=== PATIENT | male | born 1995 | race Caucasian/White ===

== ENCOUNTER 2016-10-15 20:59 | Emergency (ER) | payer MEDICAID ==
--- NOTE | 2016-10-15 21:19 | ER Document Report ---
ED Medical Screen (RME) - General Stated Complaint: KNEE PAIN Time seen by provider: 21:17 Mode of Arrival: Ambulatory Information source: Patient Notes: 20-year-old male twisted his left knee when getting up off the floor 2:30 pm today. Pain persists, not swollen. He used ice and ibuprofen. TRAVEL OUTSIDE OF THE [place] IN LAST 30 DAYS: No - Related Data Allergies/Adverse Reactions: No Known Allergies Allergy (Verified 08/22/14 15:59) Past Medical History Pulmonary Medical History: Reports: Hx Bronchitis Musculoskeltal Medical History: Reports Hx Musculoskeletal Trauma - left arm and finger Psychiatric Medical History: Reports: Hx Attention Deficit Hyperactivity Disorder Traumatic Medical History: Reports: Hx Fractures Past Surgical History: Reports: Hx Abdominal Surgery - inguinal hernia, Hx Inguinal Hernia - repair at 6 months - Immunizations Immunizations up to date: Yes Hx Diphtheria, Pertussis, Tetanus Vaccination: Yes - 2009
[2016-10-16] MEDS ORDERED: TRAMADOL HCL 50 MG TABLET PO ONE (00:04)
--- NOTE | 2016-10-16 00:04 | ER Document Report ---
ED General - General Chief Complaint: Knee Injury Stated Complaint: KNEE PAIN Mode of Arrival: Ambulatory TRAVEL OUTSIDE OF THE [place] IN LAST 30 DAYS: No - HPI Patient complains to provider of: left knee injury Notes: Patient complaining of left knee pain after he twisted his knee today. Patient states most pain is along his kneecap. Patient has been ambulating around the ER after his x-ray waiting for evaluation. Otherwise denies any other injuries. - Related Data Allergies/Adverse Reactions: No Known Allergies Allergy (Verified 08/22/14 15:59) Past Medical History - General Information source: Patient - Social History Smoking Status: Current Every Day Smoker Frequency of alcohol use: Occasional Drug Abuse: None Family History: CAD, DM, Hyperlipidemia, Hypertension. denies: Arthritis, COPD , CVA, Malignancy, Thyroid Disfunction Patient has suicidal ideation: No Patient has homicidal ideation: No Pulmonary Medical History: Reports: Hx Bronchitis Renal/ Medical History: Denies: Hx Peritoneal Dialysis Musculoskeltal Medical History: Reports Hx Musculoskeletal Trauma - left arm and finger Psychiatric Medical History: Reports: Hx Attention Deficit Hyperactivity Disorder Traumatic Medical History: Reports: Hx Fractures Past Surgical History: Reports: Hx Abdominal Surgery - inguinal hernia, Hx Inguinal Hernia - repair at 6 months - Immunizations Immunizations up to date: Yes Hx Diphtheria, Pertussis, Tetanus Vaccination: Yes - 2009 Review of Systems - Review of Systems Constitutional: No symptoms reported EENT: No symptoms reported Cardiovascular: No symptoms reported Respiratory: No symptoms reported Gastrointestinal: No symptoms reported Genitourinary: No symptoms reported Male Genitourinary: No symptoms reported Musculoskeletal: Muscle pain Skin: No symptoms reported Hematologic/Lymphatic: No symptoms reported Neurological/Psychological: No symptoms reported -: Yes All other systems reviewed and negative Physical Exam - Vital signs Vitals: Temp Pulse Resp BP Pulse Ox 98.4 F 106 H 18 149/82 H 97 10/15/16 21:06 10/15/16 21:06 10/15/16 21:06 10/15/16 21:06 10/15/16 21:06 Interpretation: Normal - General General appearance: Appears well, Alert - HEENT Head: Normocephalic, Atraumatic Eyes: Normal Pupils: PERRL - Respiratory Respiratory status: No respiratory distress Chest status: Nontender Breath sounds: Normal Chest palpation: Normal - Cardiovascular Rhythm: Regular Heart sounds: Normal auscultation Murmur: No - Abdominal Inspection: Normal Distension: No distension Bowel sounds: Normal Tenderness: Nontender Organomegaly: No organomegaly - Back Back: Normal, Nontender - Extremities General upper extremity: Normal inspection, Nontender, Normal color, Normal ROM , Normal temperature General lower extremity: Normal inspection, Tender - Tenderness to palpation of the left patella tendon insertion of the patella tendon. There is no laxity or tenderness upon posterior anterior valve or varus stressing of the leg. No loss deformity right leg unaffected, Normal color, Normal ROM, Normal temperature, Normal weight bearing. No: Shayy's sign - Neurological Neuro grossly intact: Yes Cognition: Normal Orientation: AAOx4 [place] Coma Scale Eye Opening: Spontaneous [place] Coma Scale Verbal: Oriented [place] Coma Scale Motor: Obeys Commands [place] Coma Scale Total: 15 Speech: Normal Motor strength normal: LUE, RUE, LLE, RLE Sensory: Normal - Psychological Associated symptoms: Normal affect, Normal mood - Skin Skin Temperature: Warm Skin Moisture: Dry Skin Color: Normal Course - Re-evaluation Re-evalutation: 10/16/16 00:01 Patient with possibly strain. Encouraged patient is continuing to take Tylenol Motrin ice and elevate his knee. Patient is also encouraged to use Kd wraps at home to give his knee for support. Will give the patient 10 will transfer home. Will give the patient a dose of Ultram here. Patient will be discharged - Vital Signs Vital signs: Temp Pulse Resp BP Pulse Ox 98.4 F 106 H 18 149/82 H 97 10/15/16 21:18 10/15/16 21:18 10/15/16 21:18 10/15/16 21:18 10/15/16 21:18 Discharge - Discharge Clinical Impression: Knee sprain Qualifiers: Encounter type: initial encounter Involved ligament of knee: unspecified ligament Laterality: left Qualified Code(s): S83.92XA - Sprain of unspecified site of left knee, initial encounter Condition: Good Disposition: HOME, SELF-CARE Instructions: Oral Narcotic Medication ([facility]), Sprained Knee ([facility]), Ice & Elevation ([facility]) Additional Instructions: Follow-up with your primary memory care program director. I will recommend wrapping her knee while ambulate with a Kd bandage. Continue to take Tylenol Motrin for pain control. Ice your knee you may also apply heat or warm towel. Your examination is consistent with a knee sprain. Pain will continue for the next 3-5 days Prescriptions: Tramadol HCl [Ultram 50 mg Tablet] 50 mg PO ASDIR PRN #12 tablet PRN Reason: Referrals: ALLYN CUNNINGHAM FNP-C [Primary Care Provider] - Follow up in 3-5 days
[2016-10-16 00:54] VITALS: BP 130/75
== END 2016-10-16 00:56 | disposition home or self-care (01) ==
LOC: ER 20:59
DX: S83.92XA Sprain of unspecified site of left knee, initial encounter (principal); F17.210 Nicotine dependence, cigarettes, uncomplicated; X58.XXXA Exposure to other specified factors, initial encounter
CPT/HCPCS: 99283

== ENCOUNTER 2016-10-17 22:56 | Emergency (ER) | payer MEDICAID ==
[2016-10-18] MEDS ORDERED: HYDROCODONE/ACETAMINOPHEN 5-325 MG 6 TAB/DSPK PO PRN (03:20)
--- NOTE | 2016-10-18 03:20 | ER Document Report ---
[id number],VOMITING Notes: Patient is a 20 -year-old male who presents with complaint of a sore throat. He was seen in urgent care 2 days ago and started on amoxicillin. He says that his throat continues to hurt feels like it swollen. He did not receive steroids Decadron at the urgent care. He says today when he coughed a little bit of blood in his sputum therefore became concerned ER. He also mentions that he was seen here several days ago because of pain in his left knee. When he stood up and walked he felt his knee twist and felt a pop. He says knee continues to hurt. No new injuries. He had x-ray at that time which was negative. TRAVEL OUTSIDE OF THE [place] IN LAST 30 DAYS: No - Related Data Allergies/Adverse Reactions: codeine Allergy (Verified 10/17/16 23:24) tramadol [From Ultram] Allergy (Verified 10/17/16 23:24) Past Medical History - Social History Smoking Status: Never Smoker Cigarette use (# per day): No Chew tobacco use (# tins/day): No Frequency of alcohol use: None Drug Abuse: None Family History: CAD, DM, Hyperlipidemia, Hypertension. denies: Arthritis, COPD , CVA, Malignancy, Thyroid Disfunction Patient has suicidal ideation: No Patient has homicidal ideation: No Pulmonary Medical History: Reports: Hx Bronchitis Renal/ Medical History: Denies: Hx Peritoneal Dialysis Musculoskeltal Medical History: Reports Hx Musculoskeletal Trauma - left arm and finger Psychiatric Medical History: Reports: Hx Attention Deficit Hyperactivity Disorder Traumatic Medical History: Reports: Hx Fractures Past Surgical History: Reports: Hx Abdominal Surgery - inguinal hernia, Hx Inguinal Hernia - repair at 6 months - Immunizations Immunizations up to date: Yes Hx Diphtheria, Pertussis, Tetanus Vaccination: Yes - 2009 Review of Systems - Review of Systems Notes: My Normal Review Basic REVIEW OF SYSTEMS: CONSTITUTIONAL : Denies fever, chills, or sweats. Denies recent illness. EENT: Sore throat CARDIOVASCULAR: Denies chest pain. RESPIRATORY: Cough GASTROINTESTINAL: Denies abdominal pain. Denies nausea, vomiting, or diarrhea. Denies constipation. Last BM: GENITOURINARY: Denies difficulty urinating, painful urination, burning, frequency, or blood in urine. MUSCULOSKELETAL: Denies neck or back pain or joint pain or swelling. SKIN: Denies rash or skin lesions. NEUROLOGICAL: Denies altered mental status or loss of consciousness. Denies headache. Denies weakness or paralysis or loss of use of either side. Denies problems with gait or speech. Denies sensory or motor loss. ALL OTHER SYSTEMS REVIEWED AND NEGATIVE. Physical Exam - Vital signs Vitals: Temp Pulse Resp BP Pulse Ox 98.0 F 90 18 126/76 H 99 10/18/16 03:49 10/18/16 03:49 10/18/16 03:49 10/18/16 03:49 10/18/16 03:49 - Notes Notes: General Appearance: Well nourished, alert, cooperative, no acute distress, moderate obvious discomfort. Vitals: reviewed, See vital signs table. Head: no swelling or tenderness to the head Eyes: PERRL, EOMI, Conjuctiva clear Mouth: No decreasd moisture Throat: Enlarged tonsils bilaterally. Some erythema. No exudates. Neck: Supple, no neck tenderness, No thyromegaly Lungs: No wheezing, No rales, No rhonci, No accessory muscle use, good air exchange bilaterally. Heart: Normal rate, Regular rythm, No murmur, no rub Abdomen: Normal BS, soft, No rigidity, No abdominal tenderness, No guarding, no rebound, no abdominal masses, no organomegaly Extremities: strength 5/5 in all extremities, good pulses in all extremities, pain with rotation of the left knee. Some pain to palpation in both medial and lateral aspect. No stiff and swelling. Patient is able to fully extend his knee against gravity without any difficulty. No edema. Skin: warm, dry, appropriate color, no rash Neuro: speech clear, oriented x 3, normal affect, responds appropriately to questions. Course - Vital Signs Vital signs: Temp Pulse Resp BP Pulse Ox 98.0 F 90 18 126/76 H 99 10/18/16 03:49 10/18/16 03:49 10/18/16 03:49 10/18/16 03:49 10/18/16 03:49 - Transfer of Care Notes: 10/18/16 05:52 Patient given a shot of Decadron to help with his sore throat and tonsil enlargement. He has no evidence of peritonsillar abscess on exam. His no fevers and otherwise looks well. We'll give him some cough medicine. I will give him crutches for his knee. I encourage him to wear knee brace. Encourage in follow closely with his doctor for reevaluation. If he continues to have problems with his knee or pain with dyspnea after one week and is to follow-up with orthopedic surgeon. I encouraged him to avoid weightbearing activities on the knee until he is pain-free. I encourage him to avoid any sporting type activities. Encourage return to ER immediately if he has any swelling in his throat, difficulty breathing, difficulty swallowing. Patient agrees with plan and will be discharged home. Dictation of this chart was performed using voice recognition software; therefore, there may be some unintended grammatical errors. Discharge - Discharge Clinical Impression: Pharyngitis Qualifiers: Pharyngitis/tonsillitis etiology: unspecified etiology Qualified Code(s): J02.9 - Acute pharyngitis, unspecified Knee pain, left Qualifiers: Chronicity: acute Qualified Code(s): M25.562 - Pain in left knee Condition: Good Disposition: HOME, SELF-CARE Instructions: Oral Narcotic Medication ([facility]) Additional Instructions: Please return to the ER immediately if you have difficulty breathing, fevers, vomiting, or feel like your symptoms are worsening. Please follow-up with the orthopedic surgeon, Dr. Garcia, in one week if you continue to have knee pain. Do not do any exertional activity or running or any thing that will apply significant pressure to your knee until has completely healed or you are cleared by physician. Prescriptions: Benzonatate [Tessalon Perle 100 mg Capsule] 100 mg PO Q8HP PRN #14 cap PRN Reason: Hydrocodone/Acetaminophen [[place] 5-325 mg Tablet] 1 tab PO Q4 PRN #12 tablet PRN Reason: For Breakthrough Pain Referrals: ALLYN CUNNINGHAM, [employer] [Primary Care Provider] - Follow up in 3-5 days YOGI GARCIA MD [ACTIVE STAFF] - Follow up in 3-5 days
[2016-10-18] MEDS ORDERED: DEXAMETHASONE SOD PHOS INJ 10 MG/1 ML VIAL IM ONE (03:21)
[2016-10-18 03:53] VITALS: BP 126/76
== END 2016-10-18 03:53 | disposition home or self-care (01) ==
LOC: ER 22:56
DX: J02.9 Acute pharyngitis, unspecified (principal); M25.562 Pain in left knee; R11.10 Vomiting, unspecified; Z88.6 Allergy status to analgesic agent
CPT/HCPCS: 99283; 96372; 87070; 87880; J1100

== ENCOUNTER 2017-02-02 14:15 | Emergency (ER) | payer OTHER, MEDICAID ==
--- NOTE | 2017-02-02 15:09 | ER Document Report ---
ED General - General Chief Complaint: Laceration Stated Complaint: LACERATION TO RIGHT PINKEY FINGER Time Seen by Provider: 02/02/17 15:07 Mode of Arrival: Ambulatory Information source: Patient Notes: Patient is a 21-year-old male who presents to laceration to the dorsal surface of his fifth digit on his right hand. He states he was using a metal pole at work and he turned his hand cutting his finger on the metal tool around 11:30 this morning. He is unsure of his last tetanus immunization. He went to urgent care who referred him to be evaluated the emergency department due to concern for tendon or ligament damage. Patient has full range of motion in flexion and extension of this digit. Bleeding is controlled at this time. He is right- handed. TRAVEL OUTSIDE OF THE [place] IN LAST 30 DAYS: No - Related Data Allergies/Adverse Reactions: codeine Allergy (Verified 02/02/17 14:18) tramadol [From Ultram] Allergy (Verified 02/02/17 14:18) Past Medical History - General Information source: Patient - Social History Smoking Status: Current Every Day Smoker Family History: CAD, DM, Hyperlipidemia, Hypertension. denies: Arthritis, COPD , CVA, Malignancy, Thyroid Disfunction Patient has suicidal ideation: No Patient has homicidal ideation: No Pulmonary Medical History: Reports: Hx Bronchitis Renal/ Medical History: Denies: Hx Peritoneal Dialysis Musculoskeltal Medical History: Reports Hx Musculoskeletal Trauma - left arm and finger Psychiatric Medical History: Reports: Hx Attention Deficit Hyperactivity Disorder Traumatic Medical History: Reports: Hx Fractures Past Surgical History: Reports: Hx Abdominal Surgery - inguinal hernia, Hx Inguinal Hernia - repair at 6 months - Immunizations Immunizations up to date: Yes Hx Diphtheria, Pertussis, Tetanus Vaccination: Yes - 2009 Review of Systems - Review of Systems Constitutional: See HPI EENT: No symptoms reported Cardiovascular: No symptoms reported Respiratory: No symptoms reported Gastrointestinal: No symptoms reported Genitourinary: No symptoms reported Male Genitourinary: No symptoms reported Musculoskeletal: See HPI Skin: See HPI Hematologic/Lymphatic: No symptoms reported Neurological/Psychological: No symptoms reported Physical Exam - Vital signs Vitals: Temp Pulse BP Pulse Ox 99.1 F 105 H 155/94 H 98 02/02/17 14:19 02/02/17 14:19 02/02/17 14:19 02/02/17 14:19 Interpretation: Hypertensive, Tachycardic - Notes Notes: PHYSICAL EXAM: CONSTITUTIONAL: Alert and oriented, well-appearing and in no acute distress. HENT: Normocephalic, atraumatic. Trachea midline. Uvula midline. Moist mucous membranes. EYES: Pupils equal round and reactive to light, EOM intact. Sclera anicteric, conjunctiva are normal. No entrapment. NECK: supple without lymphadenopathy. No midline tenderness or paraspinous muscle spasms. No step-offs or deformities. ROM intact. HEART: Regular rate and rhythm without murmurs. LUNGS: CTAB and equal. No wheezes, rales or rhonchi. BACK: nontender, no paraspinous spasm, 5+/5 strengths, DTRs 2+, SLR -. EXTREMITIES: Normal range of motion, no pitting edema. No cyanosis. Cap Refill < 3 seconds. NEURO: Cranial nerves grossly intact. Normal sensory/motor exams. PSYCH: Normal mood, normal affect. SKIN: Warm and dry. Normal turgor. No rashes or lesions noted. 1.5 cm laceration to dorsal surface of fifth digit between the PIP and DIP joint. Patient has full range of motion of flexion and extension of this finger. Bleeding is controlled Course - Re-evaluation Re-evalutation: 02/02/17 17:03 Patient seen and examined. 1.5 cm laceration to dorsal surface of fifth digit between the PIP and DIP joint. Patient has full range of motion of flexion and extension of this finger. At this time, low suspicion for tendon/ligament involvement. Bleeding is controlled. Tetanus booster given. Laceration repaired - see procedure note. Discussed local wound care and advised to return in 7 days for suture remove. Given return precautions concerning infection. At this time, will discharge with return precautions and follow-up recommendations. Verbal discharge instructions given at the bedside and opportunity for questions given. Medication warnings reviewed. Patient is in agreement with this plan and has verbalized understanding of return precautions and the need for primary care follow-up in the next 24-72 hours. - Vital Signs Vital signs: Temp Pulse Resp BP Pulse Ox 99.1 F 105 H 155/94 H 98 02/02/17 14:19 02/02/17 14:19 02/02/17 14:19 02/02/17 14:19 Procedures - Laceration/Wound Repair Right Dorsal Finger 5th digit Wound length (cm): 1.5 Wound's Depth, Shape: Superficial, Flap Laceration pre-procedure: Sterile drapes applied, Shur-Clens applied Anesthetic type: 1% Lidocaine Volume Anesthetic (mLs): 2 Wound explored: Clean, No foreign body removed Irrigated w/ Saline (mLs): 20 Wound Debrided: Minimal Wound Repaired With: Sutures Suture Size/Type: 4:0, Nylon Number of Sutures: 2 Post-procedure wound care: Sterile dressing applied Post-procedure NV exam normal: Yes Complications: No Discharge - Discharge Clinical Impression: Laceration of finger of right hand Qualifiers: Encounter type: initial encounter Qualified Code(s): S61.219A - Laceration without foreign body of unspecified finger without damage to nail, initial encounter Condition: Stable Disposition: HOME, SELF-CARE Additional Instructions: LACERATION CARE: Your laceration has been sutured to keep the skin edges aligned during healing. The time of suture removal depends on the nature and location of your cut. Please follow the care instructions the doctor has outlined for you and return for further care, according to the schedule you've been given. Keep the wound and dressing clean. Unless you were told otherwise, you may shower daily, blotting the wound dry with a clean, unused towel. At other times, If the dressing gets wet or blood soaked, remove it and blot the wound dry, then reapply a new dressing. Unless you were instructed otherwise, dressings should be changed at least daily. If any signs of infection occur (swelling, redness, drainage, increasing tenderness, red streaks, tender lumps in the armpit or groin above the laceration, or fever), see the doctor immediately. SOAP CLEANSING: Gently wash the wound daily using a mild soap (like Ivory, Phisoderm, Neutrogena). Use warm water, rubbing gently until all debris, ooze, and crusting have been washed from the wound. Allow to dry briefly (about 10 minutes) after cleaning. Repeat this cleansing at least three times a day for the first two days and then once or twice a day. ANTIBIOTIC OINTMENT PROTECTION: Your wounds are such that dressing them is not practical or optional. After cleansing, you should apply a thin coating of antibiotic ointment ( Bacitracin, not Neosporin) to the wounds at least three times daily. This lessens infection risk, and may decrease the amount of scarring. Use a q-tip or dull butter knife, not your finger, to apply this ointment. Any debris or ooze which builds up in the ointment should be gently rubbed off with a sterile gauze pad. Harder crusting may need to be gently scrubbed off with a clean wash cloth with soap and warm water, perhaps applying a warm, wet wash cloth to the wound for ten minutes first. Development of redness, severe itching, or blistering may mean allergy to the ointment. See the doctor. TETANUS IMMUNIZATION GIVEN: You have been given an immunization against tetanus. Please record this in your records. In general, a booster is needed only once every 10 years. The tetanus shot protects against tetanus or "lockjaw," which is a complication of certain wound infections (the tetanus shot cannot protect against the actual infection). The immunization site may become warm and red due to local reaction. If this occurs, apply warm compresses and take aspirin or ibuprofen to reduce inflammation and discomfort. Return for evaluation if the reaction becomes severe. PROPHYLACTIC ANTIBIOTIC: The antibiotics which have been prescribed are designed to decrease the risk of infection. Only certain types of wounds benefit from this -- the typical cut, scrape, or burn DOES NOT require antibiotics. Of course, infection can still occur despite the use of prophylactic antibiotics. Your wound will heal with less chance of an infectious complication if you take the medication as directed. The most important dose is the FIRST dose, so don't delay filling the prescription! FOLLOW-UP CARE: Please return in __2___ days for an infection check and dressing change. Your sutures should be removed in __7__ days. To facilitate a timely removal of your sutures, you may return to the Emergency Department at [facility]. You do not need to call for an appointment, but the best time to come in for suture removal is early in the morning. If you have been referred to another physician for follow-up care, call that physicians office for an appointment as you were instructed. If you experience a significant change in your laceration, or if you are concerned there may be an infection (swelling, redness, drainage, increasing tenderness, red streaks, tender lumps in the armpit or groin above the laceration, or fever) , return to the Emergency Department immediately re-evaluation. Prescriptions: Cephalexin Monohydrate [Keflex 500 mg Capsule] 500 mg PO Q6H 5 Days Forms: Return to Work
[2017-02-02] MEDS ORDERED: LIDOCAINE 1% INJ-PF (10 MG/ML) 30 ML SDV INJ ONE (15:30)
[2017-02-02] MEDS ORDERED: DIPH/PERTUSS(ACELL)/TETANUS VAC/PF 0.5 ML SYR (>=10YO) IM ONE (15:30)
[2017-02-02] MEDS ORDERED: LIDOCAINE 1% INJ (10 MG/ML) 10 ML MDV INJ ONE (16:30)
[2017-02-02 17:20] VITALS: BP 168/86
== END 2017-02-02 17:15 | disposition home or self-care (01) ==
LOC: ER 14:15
PROC: 0HQFXZZ Repair Right Hand Skin, External Approach (ICD-10-PCS; principal; 2017-02-02)
DX: S61.219A Laceration without foreign body of unspecified finger without damage to nail, initial encounter (principal); W22.8XXA Striking against or struck by other objects, initial encounter; Y99.0 Civilian activity done for income or pay; F17.200 Nicotine dependence, unspecified, uncomplicated; Z88.6 Allergy status to analgesic agent; Z23 Encounter for immunization
CPT/HCPCS: 99282; 90715; 12001; J3490

== ENCOUNTER 2017-02-25 20:54 | Emergency (ER) | payer MEDICAID, OTHER | END 2017-02-25 22:08 | disposition left against medical advice (07) | LOC: ER 20:54 | DX: Z53.21 Procedure and treatment not carried out due to patient leaving prior to being seen by health care provider (principal) ==

== ENCOUNTER 2017-02-26 09:37 | Emergency (ER) | payer MEDICAID, OTHER ==
[2017-02-26 09:51] VITALS: BP 143/69
[2017-02-26] MEDS ORDERED: PENICILLIN G BENZATHINE 1.2 MILLION UNIT/2 ML DISP.SYRIN IM ONE (10:11)
--- NOTE | 2017-02-26 10:25 | ER Document Report ---
HPI - HPI Patient complains to provider of: sore throat Pain Level: 5 Context: Patient is a 21-year-old male presents emergency department complaining of a sore throat since Monday. Patient denies any fever, chills. Admits to difficulty swallowing but denies any shortness of breath, muffled speech, drooling, without drainage, chest pain, neck pain. History of strep throat. States that he needs his tonsils out but has not followed with ENT - DERM Skin Color: Normal Past Medical History - Social History Smoking Status: Unknown if Ever Smoked Family History: CAD, DM, Hyperlipidemia, Hypertension. denies: Arthritis, COPD , CVA, Malignancy, Thyroid Disfunction Patient has suicidal ideation: No Patient has homicidal ideation: No Pulmonary Medical History: Reports: Hx Bronchitis Renal/ Medical History: Denies: Hx Peritoneal Dialysis Musculoskeltal Medical History: Reports Hx Musculoskeletal Trauma - left arm and finger Psychiatric Medical History: Reports: Hx Attention Deficit Hyperactivity Disorder Traumatic Medical History: Reports: Hx Fractures Past Surgical History: Reports: Hx Abdominal Surgery - inguinal hernia, Hx Inguinal Hernia - repair at 6 months - Immunizations Immunizations up to date: Yes Hx Diphtheria, Pertussis, Tetanus Vaccination: Yes - 2009 [employer] Provider Document - CONSTITUTIONAL Agree With Documented VS: Yes Exam Limitations: No Limitations - INFECTION CONTROL TRAVEL OUTSIDE OF THE [place] IN LAST 30 DAYS: No - HEENT HEENT: Atraumatic, Normocephalic, Pharyngeal Exudate, Pharyngeal Erythema. negative: Tympanic Membrane Red, Tympanic Membrane Bulging Notes: Uvula midline. Airway patent. No evidence of tonsillar enlargement, peritonsillar abscess, retropharyngeal abscess. - NECK Neck: Normal Inspection, Other - no evidence of ludwigs angina. negative: Lymphadenopathy-Left, Lymphadenopathy-Right - RESPIRATORY Respiratory: Breath Sounds Normal, No Respiratory Distress, Chest Non-Tender O2 Sat by Pulse Oximetry: 97 - CARDIOVASCULAR Cardiovascular: Regular Rate, Regular Rhythm, No Murmur - NEURO Level of Consciousness: Awake, Alert, Appropriate Motor/Sensory: No Motor Deficit, No Sensory Deficit - DERM Integumentary: Warm, Dry, No Rash Course - Re-evaluation Re-evalutation: 02/26/17 11:10 The 21-year-old male is hemodynamic stable, no acute distress and afebrile. No evidence of [employer] or retropharyngeal abscess. Patient tested negative for strep however patient presents with clinical symptoms of strep throat. Patient received IM dose of penicillin. Patient received strict return precautions that she expressed understanding and agrees with plan. Patient stable for discharge home - Vital Signs Vital signs: Temp Pulse Resp BP Pulse Ox 98.1 F 89 20 143/69 H 97 02/26/17 09:42 02/26/17 09:42 02/26/17 09:42 02/26/17 09:42 02/26/17 09:42 Discharge - Discharge Clinical Impression: Strep pharyngitis Condition: Good Disposition: HOME, SELF-CARE Instructions: Penicillin V K ([facility]), Strep Throat ([facility]) Forms: Elevated Blood Pressure, Return to Work Referrals: ALLYN CUNNINGHAM, [facility] [Primary Care Provider] - Follow up as needed
== END 2017-02-26 10:32 | disposition home or self-care (01) ==
LOC: ER 09:37
DX: J02.0 Streptococcal pharyngitis (principal)
CPT/HCPCS: 99283; 96372; 87070; 87880; 87077; J0561

== ENCOUNTER 2017-04-14 22:40 | Emergency (ER) | payer MEDICAID ==
[2017-04-14 23:51] VITALS: BP 132/70
[2017-04-15] MEDS ORDERED: CLINDAMYCIN HCL 150 MG CAPSULE PO ONE (02:22)
--- NOTE | 2017-04-15 02:25 | ER Document Report ---
ED General - General Chief Complaint: Skin Sore(s) Stated Complaint: BELLY BUTTON PAIN Time Seen by Provider: 04/15/17 02:02 Information source: Patient TRAVEL OUTSIDE OF THE [place] IN LAST 30 DAYS: No - HPI Onset: Other - several months Onset/Duration: Gradual Quality of pain: Achy, Throbbing Severity: Mild Associated symptoms: None - Related Data Allergies/Adverse Reactions: codeine Allergy (Verified 02/26/17 09:43) tramadol [From Ultram] Allergy (Verified 02/26/17 09:43) Past Medical History - General Information source: Patient - Social History Smoking Status: Never Smoker Chew tobacco use (# tins/day): No Frequency of alcohol use: None Drug Abuse: None Family History: CAD, DM, Hyperlipidemia, Hypertension. denies: Arthritis, COPD , CVA, Malignancy, Thyroid Disfunction Patient has suicidal ideation: No Patient has homicidal ideation: No Pulmonary Medical History: Reports: Hx Bronchitis Renal/ Medical History: Denies: Hx Peritoneal Dialysis Musculoskeltal Medical History: Reports Hx Musculoskeletal Trauma - left arm and finger Psychiatric Medical History: Reports: Hx Attention Deficit Hyperactivity Disorder Traumatic Medical History: Reports: Hx Fractures Past Surgical History: Reports: Hx Abdominal Surgery - inguinal hernia, Hx Inguinal Hernia - repair at 6 months - Immunizations Immunizations up to date: Yes Hx Diphtheria, Pertussis, Tetanus Vaccination: Yes - 2009 Review of Systems - Review of Systems Constitutional: No symptoms reported Cardiovascular: No symptoms reported Respiratory: No symptoms reported Gastrointestinal: No symptoms reported - pain drainge at umbilical site Genitourinary: No symptoms reported Male Genitourinary: No symptoms reported Physical Exam - Vital signs Vitals: Temp Pulse Resp BP Pulse Ox 98.3 F 88 19 132/70 H 98 04/14/17 23:48 04/14/17 23:48 04/14/17 23:48 04/14/17 23:48 04/14/17 23:48 - General General appearance: Appears well, Alert - Respiratory Respiratory status: No respiratory distress Chest status: Nontender Breath sounds: Normal Chest palpation: Normal - Cardiovascular Rhythm: Regular Heart sounds: Normal auscultation Murmur: No - Abdominal Distension: No distension Bowel sounds: Normal Tenderness: Nontender - patient with small open draining area at the umbilicus site. no definitive abscess creapitus necrosis. Palpation of the abdomen and pelvis no palpable defects or hernias cellulitis crepitus or necrosis Course - Re-evaluation Re-evalutation: 04/15/17 10:41 Presents emergency department with draining foul-smelling from his umbilical site. He said he noticed it for the past couple months it would be a little off he was cleaning out alcohol and go away last 3 days he noticed it as well with drainage it is tender at the site but no abdominal tenderness guarding rebound or rigidity. No nausea vomiting or ongoing complaints. There is no identifiable abscess hernia or acute abdomen I had started him on antibiotics close PCP follow-up to 3 days and discussed reasons for ED return sooner - Vital Signs Vital signs: Temp Pulse Resp BP Pulse Ox 98.3 F 88 19 132/70 H 98 04/14/17 23:48 04/14/17 23:48 04/14/17 23:48 04/14/17 23:48 04/14/17 23:48 Discharge - Discharge Clinical Impression: infected belly button site Condition: Stable Disposition: HOME, SELF-CARE Additional Instructions: Abscess You have an abscess (boil). This a pus-forming infection, usually due to staph. Some boils may be left to drain on their own, but most require lancing. From the time the tender lump first appears, it may be three or four days before the abscess is ready to marissa. Local heat and rest help at this stage of treatment. An antibiotic may prevent spread of the infection. Once the abscess is opened, packing may be placed into it. This is done so pus is not sealed inside by premature closure of the cavity. The packing will be removed at your follow-up visit or you may be advised to remove it yourself at home. Sometimes this packing must be replaced a few times during healing. The wound will heal with surprisingly little scar. Depending on the size and location of an abscess, healing can take one to four weeks. You may shower and wash the area around the incision site two or three times a day. Antibiotics may be prescribed, but are usually not necessary after an abscess has been drained. If you develop fever, chilling, worsening pain, or increasing swelling in the area, call the doctor or return immediately. call your primary care physician at [facility] in am to be seen in follow up in 3-4 days return to er sooner for increasing worsening or new symptoms Prescriptions: Clindamycin HCl 300 mg PO BID #14 capsule
== END 2017-04-15 02:56 | disposition home or self-care (01) ==
LOC: ER 22:40
DX: L08.82 Omphalitis not of newborn (principal); Z88.6 Allergy status to analgesic agent
CPT/HCPCS: 99283

== ENCOUNTER 2017-11-26 14:05 | Emergency (ER) | payer OTHER, MEDICAID ==
[2017-11-26] MEDS ORDERED: KETOROLAC TROMETHAMINE INJ/PF 30 MG/1 ML SDV IM ONE (15:05)
--- NOTE | 2017-11-26 15:06 | ER Document Report ---
HPI - HPI Patient complains to provider of: low back pain Pain Level: 5 Context: Patient is a 21-year-old male who presents emergency department with a chief complaint of low back pain. 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 He states that intermittently he will get low back pain due to the heavy lifting nature of his position. He states on Monday that he was lifting a piece and at the end of the day he was having more discomfort and pain in his lower back. He states that it is on both sides of his lower back and with certain movement radiates outwards. He denies any radiation into his legs, numbness, tingling, difficulty walking. He states that is better at rest and with certain stretches. He denies any urinary /stool incontinence, saddle anesthesia. He has been taking Tylenol and Motrin at home without any complete resolution of his pain. Past Medical History - Social History Smoking Status: Current Every Day Smoker Smoking Education Provided: Yes - >2 minutes cessation education provided Family History: CAD, DM, Hyperlipidemia, Hypertension. denies: Arthritis, COPD , CVA, Malignancy, Thyroid Disfunction Pulmonary Medical History: Reports: Hx Bronchitis Renal/ Medical History: Denies: Hx Peritoneal Dialysis Musculoskeltal Medical History: Reports Hx Musculoskeletal Trauma - left arm and finger Psychiatric Medical History: Reports: Hx Attention Deficit Hyperactivity Disorder Traumatic Medical History: Reports: Hx Fractures Past Surgical History: Reports: Hx Abdominal Surgery - inguinal hernia, Hx Inguinal Hernia - repair at 6 months - Immunizations Immunizations up to date: Yes Hx Diphtheria, Pertussis, Tetanus Vaccination: Yes - 2009 [employer] Provider Document - CONSTITUTIONAL Agree With Documented VS: Yes Notes: PHYSICAL EXAM GENERAL: Alert, interacts well. Back: No spinous process deformities, step-offs or tenderness. Pain reproducible palpation of bilateral paralumbar musculature. 5 out of 5 strength both distally and proximally bilateral lower extremities. 2+ patellar reflexes bilaterally. No clonus. Sensation grossly intact in the bilateral lower extremities. Patient is able to ambulate without difficulty. EXTREMITIES: Moves all 4 extremities spontaneously. No edema, dorsalis pedis pulses 2/4 bilaterally. No cyanosis. NEUROLOGICAL: Alert and oriented x4. Normal speech. PSYCH: Normal affect, normal mood. SKIN: Warm, dry, normal turgor. No rashes or lesions noted. - INFECTION CONTROL TRAVEL OUTSIDE OF THE [place] IN LAST 30 DAYS: No - RESPIRATORY O2 Sat by Pulse Oximetry: 98 Course - Re-evaluation Re-evalutation: 11/26/17 16:06 Patient is a 21-year-old male who is hemodynamically stable, no acute distress and afebrile. Presentation is consistent with a musculoskeletal lumbar muscular strain likely due to his heavy lifting requirement for his job. While discussing it further she states that they do not have a belt for him at his job due to his weight. The patient presents with low back pain without signs of spinal cord compression, cauda equina syndrome, infection, aneurysm, or other serious etiology. The patient is neurologically intact. Given the extremely low risk of these diagnoses further testing and evaluation for these possibilities does not appear to be indicated at this time. Lumbar film without any evidence of disc or vertebral loss of height concerns for underlying fracture. The patient has been instructed to return if the symptoms worsen or change in any way. - Vital Signs Vital signs: Temp Pulse Resp BP Pulse Ox 98.1 F 100 17 141/78 H 98 11/26/17 14:17 11/26/17 14:17 11/26/17 14:17 11/26/17 14:17 11/26/17 14:17 - Diagnostic Test Radiology reviewed: Image reviewed, Reports reviewed Discharge - Discharge Clinical Impression: Pre-hypertension Low back pain Qualifiers: Chronicity: acute Back pain laterality: bilateral Sciatica presence: without sciatica Qualified Code(s): M54.5 - Low back pain Condition: Good Disposition: HOME, SELF-CARE Additional Instructions: LOW BACK PAIN: Three out of every four people will have an episode of disabling back pain during their lifetime. Most commonly the pain is due to straining of the muscles and ligaments in the low back. Usual treatment includes: (1) Rest on a firm surface. Avoid lying on your stomach. (2) Ice pack the painful area. After a few days, gentle heat may be used intermittently to relax the area, or ice packs can be continued. (3) Medication may be needed -- muscle relaxers and antiinflammatory medicines are commonly used. (4) As the back improves, exercises are prescribed to strengthen the back and abdominal muscles. Your doctor will advise you on the proper care for your back at each stage in your recovery. You may be better in a few days -- or healing may take several weeks. If new symptoms of a "herniated disc" (radiation of pain, numbness, or tingling down the back of the leg or weakness in the leg) occur, you should be re-examined. Further testing may be necessary. PAIN MEDICATION INJECTION: You have received an injection of a pain medication. You should experience significant pain relief within 45 minutes. If this injection was a narcotic -- it will impair your judgement, slow your reaction time and make you sleepy (as well as relieve your pain). Narcotics also can cause nausea. You should not drive, work with machinery, or perform any task requiring mental alertness until all effects of the medication are gone -- six to eight hours. Do not take any alcohol, or sedatives, and do not take any other medication without checking with your physician. MUSCLE RELAXERS: Muscle relaxing medications are usually prescribed for acute muscle spasm or injury to the neck and back. They are often combined with antiinflammatory pain medication for increased relief. You may stop the muscle relaxer when the pain and stiffness have improved. Start the medication again if spasms recur. Muscle relaxers may cause drowsiness, especially with the first dose. Do not operate machinery or drive while under the effects of the medication. Most muscle relaxers last up to 24 hours. Do not combine the medication with alcohol. ICE PACKS: Apply ice packs frequently against the painful area. Many different schedules are recommended, such as "20 minutes on, 20 minutes off" or "one hour ice, two hours rest." If you need to work, you may need to go longer between ice treatments. You should plan to have the area ice packed AT LEAST one fourth of the time. The ice should be applied over the wrap, tape, or splint, or over a layer of cloth -- not directly against the skin. Some ice bags have a built-in cloth and can be put directly on the skin. WARM PACKS: After approximately two days, apply gentle heat (such as a heating pad or hot water bottle) for about 20 to 30 minutes about every two hours -- at least four times daily. Warmth and elevation will help you make a more rapid recovery , and will ease the pain considerably. Do not use HOT heat, and never apply heat for longer than 30 minutes. The continuous heat can invisibly damage skin and muscles -- even when no burn is seen on the surface. Damaged muscles can make you MORE sore. FOLLOW-UP CARE: If you have been referred to a physician for follow-up care, call the physician s office for an appointment as you were instructed or within the next two days. If you experience worsening or a significant change in your symptoms, notify the physician immediately or return to the Emergency Department at any time for re-evaluation. Prescriptions: Cyclobenzaprine HCl [Flexeril 10 mg Tablet] 10 mg PO TIDP PRN #15 tab PRN Reason: Forms: Return to Work, Special Work Note, Elevated Blood Pressure, Smoking Cessation Education Referrals: [facility] [Provider Group] - Follow up in 1 week
--- NOTE | 2017-11-26 15:51 | RADIOLOGY REPORT (SQ) ---
EXAM DESCRIPTION: L SPINE WHOLE COMPLETED DATE/TIME: 11/26/2017 3:42 pm REASON FOR STUDY: low back pain COMPARISON: None. NUMBER OF VIEWS: Five views including obliques. TECHNIQUE: AP, lateral, oblique, and sacral radiographic images acquired of the lumbar spine. LIMITATIONS: None. FINDINGS: MINERALIZATION: Normal. SEGMENTATION: Normal. No transitional anatomy. ALIGNMENT: Normal. VERTEBRAE: Maintained height. No fracture or worrisome bone lesion. DISCS: Preserved height. No significant osteophytes or end plate irregularity. POSTERIOR ELEMENTS: Pedicles and facets are intact. No pars defect or posterior arch defects. HARDWARE: None in the spine. PARASPINAL SOFT TISSUES: Normal. PELVIS: Intact as visualized. No fractures or worrisome bone lesions. SI joints intact. OTHER: No other significant finding. IMPRESSION: NORMAL 5 VIEW LUMBAR SPINE. TECHNICAL DOCUMENTATION: JOB ID: [id number] [employer]- All Rights Reserved Reading location - IP/workstation name: [email or web address]
[2017-11-26 16:50] VITALS: BP 140/78
== END 2017-11-26 16:15 | disposition home or self-care (01) ==
LOC: ER 14:05
DX: M54.5 Low back pain (principal); R03.0 Elevated blood-pressure reading, without diagnosis of hypertension; F17.200 Nicotine dependence, unspecified, uncomplicated; X50.0XXA Overexertion from strenuous movement or load, initial encounter; Y99.0 Civilian activity done for income or pay
CPT/HCPCS: 99283; 96372; 72110; J1885

== ENCOUNTER 2019-02-11 05:44 | Emergency (ER) | payer MEDICAID ==
--- NOTE | 2019-02-11 07:47 | ER Document Report ---
HPI - HPI Time Seen by Provider: 02/11/19 07:31 Pain Level: 5 Context: Patient is a 23-year-old male who presents the emergency department with a chief complaint of a cough and sore throat. He states that he has had his symptoms for the past 3 days. He denies any difficulty breathing. States that he may have had some chills, but is unsure. He has not taken his temperature. He took Tylenol around 2:00 in the morning. His temperature here in the emergency depar tment is 98.4. Denies any past medical history. He does not take any medications. - CONSTITUTIONAL Constitutional: REPORTS: Chills - EENT EENT: REPORTS: Sore Throat, Ear Pain, Nasal Drainage-Clear, Nasal Drainage- Purulent, Congestion. DENIES: Eye problems - CARDIOVASCULAR Cardiovascular: DENIES: Chest pain - RESPIRATORY Respiratory: REPORTS: Coughing. DENIES: Trouble Breathing - GASTROINTESTINAL Gastrointestinal: DENIES: Abdominal Pain - MUSCULOSKELETAL Musculoskeletal: DENIES: Extremity pain - DERM Skin Color: Normal Skin Problems: None Past Medical History - Social History Smoking Status: Current Every Day Smoker Frequency of alcohol use: Occasional Drug Abuse: None Family History: CAD, DM, Hyperlipidemia, Hypertension. denies: Arthritis, COPD, CVA, Malignancy, Thyroid Disfunction Patient has suicidal ideation: No Patient has homicidal ideation: No Pulmonary Medical History: Reports: Hx Bronchitis Renal/ Medical History: Denies: Hx Peritoneal Dialysis Musculoskeletal Medical History: Reports Hx Musculoskeletal Trauma - left arm and finger Psychiatric Medical History: Reports: Hx Attention Deficit Hyperactivity Disorder Traumatic Medical History: Reports: Hx Fractures Past Surgical History: Reports: Hx Abdominal Surgery - inguinal hernia, Hx Inguinal Hernia - repair at 6 months - Immunizations Immunizations up to date: Yes Hx Diphtheria, Pertussis, Tetanus Vaccination: Yes - 2009 [facility] Provider Document - CONSTITUTIONAL Agree With Documented VS: Yes Exam Limitations: No Limitations General Appearance: No Apparent Distress - INFECTION CONTROL TRAVEL OUTSIDE OF THE [place] IN LAST 30 DAYS: No - HEENT HEENT: Atraumatic, Normal ENT Exam, Normocephalic, PERRLA, Pharyngeal Exudate, Pharyngeal Tenderness, Pharyngeal Erythema. negative: Conjuctival Injection, Tympanic Membrane Red, Tympanic Membrane Bulging Notes: edema and erythema noted to patients bilateral nares and bilateral external auditory canals. - NECK Neck: Normal Inspection, Supple - RESPIRATORY Respiratory: Breath Sounds Normal, No Respiratory Distress, Chest Non-Tender - CARDIOVASCULAR Cardiovascular: Regular Rate, Regular Rhythm Pulses: Normal: Radial - MUSCULOSKELETAL/EXTREMETIES Musculoskeletal/Extremeties: FROM - NEURO Level of Consciousness: Awake, Alert, Appropriate Motor/Sensory: No Motor Deficit, No Sensory Deficit - DERM Integumentary: Warm, Dry, No Rash Course - Re-evaluation Re-evalutation: 02/11/19 The patient has edema and erythema noted to both exteral auditory canals. There is no erythema or purulence noted to tempanic membrane. The patient will be started on ciprodex otic drops. I have a very low suspicion for mastoiditis, as the patient does not have tenderness noted to mastoid process. He will also be given zyrtec, tessalon perles, and flonase for his symptoms. He will follow up with his PCP. He is in agreement with this plan. Verbal discharge instructions given to the patient. They verbalized understanding, they are stable for discharge. - Vital Signs Vital signs: Temp Pulse Resp BP Pulse Ox 98.4 F 94 19 148/77 H 98 02/11/19 05:48 02/11/19 05:48 02/11/19 05:48 02/11/19 05:48 02/11/19 05:48 Discharge - Discharge Clinical Impression: Cough, Sore throat Otitis externa Qualifiers: Otitis externa type: unspecified type Chronicity: acute Laterality: bilateral Qualified Code(s): H60.503 - Unspecified acute noninfective otitis externa, bilateral Condition: Stable Disposition: HOME, SELF-CARE Additional Instructions: You were seen today in the emergency department for a cough and cold chills. Your symptoms are most consistent with an upper respiratory viral infection. Please take acetaminophen 1000 mg and ibuprofen 600 mg every 6 hours as needed for any body aches or fever. You have been given cetirizine, medication to help with your runny nose. Take 1 tablet every day while you have symptoms. You have also been given Flonase, medication to help with the inflammation in your nose. Place 1 spray to each nostril twice a day. If you develop a fever greater than 100.4 F while on ibuprofen and acetaminophen, develop shortness of breath, difficulty breathing, or any symptoms that are worrisome to you, please return to the emergency department. You also have an outer ear infection in both ears. Please place 4 drops to both ears twice a day for 7 days. Please follow-up with your primary care provider in regards to this visit. Prescriptions: Benzonatate [Tessalon Perles 100 mg Capsule] 100 mg PO Q8HP PRN #40 capsule PRN Reason: Cetirizine HCl [Aller-Barby] 1 tab PO DAILY #30 tablet Fluticasone Propionate [Flonase Nasal [place] 50 Mcg/[place] 16 gm] 2 sprays NASL DAILY #1 inhaler
[2019-02-11] MEDS ORDERED: CIPROFLOXACIN HCL/DEXAMETH OTIC DROP 7.5 ML AU ONE (07:50)
[2019-02-11 07:56] VITALS: BP 144/83
== END 2019-02-11 08:13 | disposition home or self-care (01) ==
LOC: ER 05:44
DX: H60.503 Unspecified acute noninfective otitis externa, bilateral (principal); R05 Cough; J02.9 Acute pharyngitis, unspecified; R09.89 Other specified symptoms and signs involving the circulatory and respiratory systems; R09.81 Nasal congestion
CPT/HCPCS: 99282; J3490